=== PATIENT | female | born 1940 | race Caucasian/White ===

== ENCOUNTER 2021-05-11 10:56 | Inpatient (IN) | payer MEDICARE, OTHER ==
[~2021-05-11] VITALS: Ht 167.6 cm; Wt 73.0 kg
[2021-05-11] MEDS ORDERED: NIFEDIPINE ER30 M1 PO (11:31)
[2021-05-11] MEDS ORDERED: LOSARTAN POTAS100 MG PO (11:31)
[2021-05-11] MEDS ORDERED: HYDROCHLOROTHIA25 MG PO (11:31)
[2021-05-11] MEDS ORDERED: TENORMIN25 MG PO (11:31)
[2021-05-11 11:32] LABS: BASOPHILS % 0.3 % (0.0-1.0); EOSINOPHILS # (AUTO) 0.1 (0.0-0.4); EOSINOPHILS % 0.7 % (0.0-6.0); HEMATOCRIT 42.5 % (34.2-44.1); HEMOGLOBIN 13.1 g/dL (12.0-16.0); LYMPHOCYTES # (AUTO) 2.2 (1.0-3.2); LYMPHOCYTES % 21.5 % (18.0-39.1); MEAN CORPUSCULAR HGB CONC 30.8 g/dL (31-35); MEAN CORPUSCULAR VOLUME 87.4 fL (81-99); MONOCYTES % 9.6 % (4.4-11.3); NEUTROPHILS # (AUTO) 6.8 (2.1-6.9); NEUTROPHILS % 67.5 % (38.7-80.0); PLATELET COUNT 446 x10e3/uL (140-360); RED BLOOD COUNT 4.86 x10e6/uL (3.6-5.1); RED CELL DISTRIBUTION WIDTH 15.7 % (11.7-14.4)
[2021-05-11 11:45] LABS: CLARITY,URINE SL CLOUDY (CLEAR); COLOR,URINE YELLOW (YELLOW); LEUKOCYTE ESTERASE ,URINE NEGATIVE (NEGATIVE); NITRITE,URINE NEGATIVE (NEGATIVE); PROTEIN,URINE DIPSTICK NEGATIVE (NEGATIVE)
[2021-05-11 11:46] LABS: KETONES,URINE TRACE (NEGATIVE); URINE UROBILINOGEN 1 mg/dL (0.2 - 1)
[2021-05-11 11:50] LABS: INR 1.05; PARTIAL THROMBOPLASTIN TIME 29.7 seconds (23.8-35.5); PROTHROMBIN TIME 14.5 seconds (11.9-14.5)
[2021-05-11 11:52] LABS: BACTERIA,URINE FEW /HPF; EPITHELIAL CELLS,URINE MANY /LPF; RBC,URINE 0-5 /HPF (0-5); WBC,URINE (MAN) 0-5 /HPF (0-5)
[2021-05-11 11:54] LABS: ALBUMIN 3.6 g/dL (3.5-5.0); ANION GAP 16.7 mmol/L (8-16); CALCIUM 9.3 mg/dL (8.4-10.2); CREATININE, SERUM 1.13 mg/dL (0.57-1.11); MAGNESIUM 1.8 MG/DL (1.3-2.1)
[2021-05-11 11:57] LABS: POTASSIUM 2.7 mmol/L (3.5-5.1)
[2021-05-11 12:00] LABS: CREATINE KINASE MB 0.9 ng/mL (0-5.0)
[2021-05-11] MEDS ORDERED: POTASSIUM CHLORIDE 20 MEQ TAB CR PO STA (12:10)
[2021-05-11 12:32] LABS: ABG HCO3 29 mmol/L (22-26); ABG PCO2 28 mmHg (35-45); ABG PH 7.61 (7.35-7.45); ABG PO2 106 mmHg (80-105); ABG TCO2 30
[2021-05-11] MEDS ORDERED: SODIUM CHLORIDE 0.9% 500ML 500 ML IV ONE (14:00)
[2021-05-11] MEDS ORDERED: ENOXAPARIN SODIUM INJ 100 MG/ML SYR SC ONE (14:00)
[2021-05-11] MEDS ORDERED: ONDANSETRON HCL INJ 2MG/ML 2ML 2 MG/ML VIAL IV PRN (14:30)
[2021-05-11] MEDS ORDERED: SODIUM CHLORIDE 0.9% 50ML 50 ML ONE (14:32)
[2021-05-11] MEDS ORDERED: IOPAMIDOL 370 MG/ML 200 ML INFUS..BTL INJ ONE (14:33)
[2021-05-11] MEDS: FAMOTIDINE 20 MG/2 ML VIAL IV SCH ×2 (16:37→21:00)
[2021-05-11] MEDS ORDERED: POTASSIUM CHLO10 ME1 PO (16:51)
[2021-05-11 16:52] VITALS: BP 160/70
[2021-05-11] MEDS ORDERED: TYLENOL325 MG PO (17:01)
[2021-05-11 17:03] VITALS: BP 160/70
[2021-05-11] MEDS ORDERED: ACETAMINOPHEN 325 MG TAB PO PRN (17:30)
[2021-05-11] MEDS ORDERED: POTASSIUM CHLORIDE 20 MEQ TAB CR PO ONE (18:00)
[2021-05-11 19:51] LABS: CREATINE KINASE MB 1.1 ng/mL (0-5.0)
[2021-05-11 20:16] VITALS: BP 153/82
[2021-05-11 21:20] VITALS: BP 153/82
[2021-05-12] VITALS (11 sets, daily range): BP systolic 117–164; BP diastolic 58–75
[2021-05-12 05:33] LABS: BASOPHILS # (AUTO) 0.1 (0.0-0.1); BASOPHILS % 0.6 % (0.0-1.0); EOSINOPHILS # (AUTO) 0.1 (0.0-0.4); HEMATOCRIT 42.1 % (34.2-44.1); HEMOGLOBIN 13.2 g/dL (12.0-16.0); LYMPHOCYTES # (AUTO) 2.1 (1.0-3.2); LYMPHOCYTES % 24.2 % (18.0-39.1); MEAN CORPUSCULAR HGB CONC 31.4 g/dL (31-35); MEAN CORPUSCULAR VOLUME 86.3 fL (81-99); MONOCYTES # (AUTO) 0.9 (0.2-0.8); MONOCYTES % 10.1 % (4.4-11.3); NEUTROPHILS # (AUTO) 5.5 (2.1-6.9); NEUTROPHILS % 63.5 % (38.7-80.0); PLATELET COUNT 443 x10e3/uL (140-360); RED BLOOD COUNT 4.88 x10e6/uL (3.6-5.1); RED CELL DISTRIBUTION WIDTH 15.6 % (11.7-14.4)
[2021-05-12 06:12] LABS: ALBUMIN 3.4 g/dL (3.5-5.0); ALBUMIN/GLOBULIN RATIO 0.9 (0.8-2.0); ANION GAP 13.4 mmol/L (8-16); CALCIUM 9.4 mg/dL (8.4-10.2); CREATININE, SERUM 0.91 mg/dL (0.57-1.11); POTASSIUM 3.4 mmol/L (3.5-5.1)
[2021-05-12 06:41] LABS: CREATINE KINASE MB 0.8 ng/mL (0-5.0)
[2021-05-12 06:55] LABS: CHOL/HDL RATIO 4.1 (3.0-3.6)
[2021-05-12] MEDS: ASPIRIN 81 MG ENTERIC COATED PO SCH (09:41)
[2021-05-12] MEDS: LOSARTAN POTASSIUM 100 MG TAB PO SCH (09:41)
[2021-05-12] MEDS: FAMOTIDINE 20 MG/2 ML VIAL IV SCH ×2 (09:41→21:00)
[2021-05-12] MEDS: HYDROCHLOROTHIAZIDE 25 MG TAB PO SCH (09:41)
[2021-05-12] MEDS: ATENOLOL 50 MG TAB PO SCH ×2 (09:42→17:51)
[2021-05-12] MEDS: NIFEDIPINE CR 30 MG TAB PO SCH (09:42)
[2021-05-12] MEDS: POTASSIUM CHLORIDE 10MEQ EA PO SCH (09:42)
[2021-05-12] MEDS ORDERED: POTASSIUM CHLORIDE 10MEQ EA PO ONE (10:30)
[2021-05-12] MEDS ORDERED: SODIUM CHLORIDE 0.9% 250ML 0 ML ONE (11:30)
[2021-05-12] MEDS ORDERED: GADOBENATE DIMEGLUMINE 1 ML IV ONE (11:30)
[2021-05-12 13:59] LABS: CREATINE KINASE MB 1.2 ng/mL (0-5.0)
[2021-05-12] MEDS: FUROSEMIDE INJ 10 MG/ML 2 ML VIAL IV SCH (17:50)
[2021-05-13] VITALS (8 sets, daily range): BP systolic 122–168; BP diastolic 66–75
[2021-05-13 05:14] LABS: BASOPHILS # (AUTO) 0.1 (0.0-0.1); BASOPHILS % 0.5 % (0.0-1.0); EOSINOPHILS # (AUTO) 0.1 (0.0-0.4); EOSINOPHILS % 1.4 % (0.0-6.0); HEMATOCRIT 40.1 % (34.2-44.1); HEMOGLOBIN 12.6 g/dL (12.0-16.0); LYMPHOCYTES # (AUTO) 1.9 (1.0-3.2); LYMPHOCYTES % 19.7 % (18.0-39.1); MEAN CORPUSCULAR HEMOGLOBIN 27.2 pg (28-32); MEAN CORPUSCULAR HGB CONC 31.4 g/dL (31-35); MEAN CORPUSCULAR VOLUME 86.4 fL (81-99); MONOCYTES % 10.3 % (4.4-11.3); NEUTROPHILS # (AUTO) 6.5 (2.1-6.9); NEUTROPHILS % 67.7 % (38.7-80.0); PLATELET COUNT 374 x10e3/uL (140-360); RED BLOOD COUNT 4.64 x10e6/uL (3.6-5.1); RED CELL DISTRIBUTION WIDTH 15.5 % (11.7-14.4)
[2021-05-13 05:57] LABS: ANION GAP 12.1 mmol/L (8-16); CALCIUM 9.7 mg/dL (8.4-10.2); CREATININE, SERUM 1.06 mg/dL (0.57-1.11); POTASSIUM 3.1 mmol/L (3.5-5.1)
[2021-05-13] MEDS ORDERED: POTASSIUM CHLORIDE 20MEQ/100ML 100 ML IV ONE (10:00)
[2021-05-13] MEDS ORDERED: POTASSIUM CHLORIDE 10MEQ EA PO ONE (10:00)
[2021-05-13 10:16] LABS: FREE THYROXINE INDEX 2.1239 (1.4-3.8); THYROID STIMULATING HORMONE 1.221 uIU/mL (0.350-4.940)
[2021-05-13] MEDS: FAMOTIDINE 20 MG/2 ML VIAL IV SCH ×2 (10:20→20:49)
[2021-05-13] MEDS: HYDROCHLOROTHIAZIDE 25 MG TAB PO SCH (10:20)
[2021-05-13] MEDS: FUROSEMIDE INJ 10 MG/ML 2 ML VIAL IV SCH ×2 (10:20→16:32)
[2021-05-13] MEDS: ASPIRIN 81 MG ENTERIC COATED PO SCH (10:20)
[2021-05-13] MEDS: POTASSIUM CHLORIDE 10MEQ EA PO SCH (10:20)
[2021-05-13] MEDS: NIFEDIPINE CR 30 MG TAB PO SCH (10:21)
[2021-05-13] MEDS: ATENOLOL 50 MG TAB PO SCH ×2 (10:22→16:32)
[2021-05-13] MEDS ORDERED: SODIUM CHLORIDE 0.9% 500ML 500 ML ONE (10:36)
[2021-05-13] MEDS ORDERED: ONDANSETRON HCL 4 MG ORAL DISINTEGRATING TAB PO PRN (11:15)
[2021-05-13] MEDS: LOSARTAN POTASSIUM 100 MG TAB PO SCH (13:49)
[2021-05-13 15:50] LABS: FREE T4 (FREE THYROXINE) 1.02 ng/dL (0.8-1.8); THYROID STIMULATING HORMONE 1.387 uIU/mL (0.350-4.940)
[2021-05-14 00:45] VITALS: BP 133/67
[2021-05-14 02:53] VITALS: BP 133/67
[2021-05-14 05:23] VITALS: BP 131/59
[2021-05-14 05:26] LABS: BASOPHILS % 0.2 % (0.0-1.0); EOSINOPHILS # (AUTO) 0.1 (0.0-0.4); EOSINOPHILS % 1.4 % (0.0-6.0); HEMATOCRIT 39.3 % (34.2-44.1); HEMOGLOBIN 12.4 g/dL (12.0-16.0); LYMPHOCYTES # (AUTO) 1.6 (1.0-3.2); LYMPHOCYTES % 16.4 % (18.0-39.1); MEAN CORPUSCULAR HEMOGLOBIN 27.1 pg (28-32); MEAN CORPUSCULAR HGB CONC 31.6 g/dL (31-35); MEAN CORPUSCULAR VOLUME 85.8 fL (81-99); MONOCYTES % 10.5 % (4.4-11.3); NEUTROPHILS # (AUTO) 6.9 (2.1-6.9); NEUTROPHILS % 71.1 % (38.7-80.0); PLATELET COUNT 368 x10e3/uL (140-360); RED BLOOD COUNT 4.58 x10e6/uL (3.6-5.1); RED CELL DISTRIBUTION WIDTH 15.5 % (11.7-14.4)
[2021-05-14 05:53] LABS: ANION GAP 14.1 mmol/L (8-16); CALCIUM 9.5 mg/dL (8.4-10.2); CREATININE, SERUM 1.25 mg/dL (0.57-1.11); POTASSIUM 3.1 mmol/L (3.5-5.1)
[2021-05-14 08:00] VITALS: BP 156/69
[2021-05-14] MEDS: HYDROCHLOROTHIAZIDE 25 MG TAB PO SCH (09:38)
[2021-05-14] MEDS: FUROSEMIDE INJ 10 MG/ML 2 ML VIAL IV SCH (09:38)
[2021-05-14] MEDS: LOSARTAN POTASSIUM 100 MG TAB PO SCH (09:38)
[2021-05-14] MEDS: ASPIRIN 81 MG ENTERIC COATED PO SCH (09:38)
[2021-05-14] MEDS: POTASSIUM CHLORIDE 10MEQ EA PO SCH (09:38)
[2021-05-14] MEDS: FAMOTIDINE 20 MG/2 ML VIAL IV SCH (09:38)
[2021-05-14] MEDS: ATENOLOL 50 MG TAB PO SCH (09:39)
[2021-05-14] MEDS: NIFEDIPINE CR 30 MG TAB PO SCH (09:39)
[2021-05-14] MEDS: POTASSIUM CHLORIDE 20 MEQ TAB CR PO SCH ×3 (10:11→14:33)
[2021-05-14] MEDS ORDERED: SODIUM CHLORIDE 0.9% 500ML 500 ML ONE (10:26)
[2021-05-14] MEDS ORDERED: POTASSIUM CHLORIDE 20MEQ/100ML 100 ML IV ONE (10:30)
[2021-05-14 12:00] VITALS: BP 157/69
[2021-05-14] MEDS ORDERED: ATENOLOL 50 MG TAB PO SCH (17:00)
[2021-05-14 18:05] LABS: CALCIUM 9.4 mg/dL (8.4-10.2); CREATININE, SERUM 1.34 mg/dL (0.57-1.11)
[2021-05-14 18:48] VITALS: BP 131/62
== END 2021-05-14 18:49 | disposition home or self-care (01) | DRG 291 ==
LOC: ER 11:01 → ERHOLD 14:36 → MED/SURG3 15:55
DX: I11.0 Hypertensive heart disease with heart failure (principal); I50.33 Acute on chronic diastolic (congestive) heart failure; E87.3 Alkalosis; I45.2 Bifascicular block; E87.6 Hypokalemia; Z20.822 Contact with and (suspected) exposure to COVID-19; I25.10 Atherosclerotic heart disease of native coronary artery without angina pectoris; G89.29 Other chronic pain; R53.1 Weakness; E27.9 Disorder of adrenal gland, unspecified; E04.2 Nontoxic multinodular goiter; R41.82 Altered mental status, unspecified
CPT/HCPCS: 36415; 36600; 70450; 71045; 71260; 74183; 76536; 80048; 80053; 80061; 81001; 82530; 82550; 82553; 82805; 83735; 83880; 84436; 84439; 84443; 84479; 84484; 84585; 85025; 85379; 85610; 85730; 86376; 87040; 87086; 93005; 94799; 96360; 99284; J1650; J1940; J3480; J7040; J7050; Q9967; U0002

== ENCOUNTER 2021-08-30 14:31 | Emergency (ER) | payer MEDICARE, OTHER ==
[~2021-08-30] VITALS: Ht 167.6 cm; Wt 72.6 kg
[~2021-08-30 14:31] MED LIST: HYDROCHLOROTHIA25 MG PO; LOSARTAN POTAS100 MG PO; NIFEDIPINE ER30 M1 PO; POTASSIUM CHLO10 ME1 PO; TENORMIN25 MG PO; TYLENOL325 MG PO
[2021-08-30] MEDS ORDERED: TETANUS/DIPHTHERIA TOX ADULT 0.5 ML SYR IM ONE (15:00)
[2021-08-30] MEDS ORDERED: NEOMYCIN/POLYMYX/BACITR OINT 0.9 GM PKT TOP ONE (17:45)
== END 2021-08-30 17:49 | disposition home or self-care (01) ==
LOC: ER 14:45
DX: S61.411A Laceration without foreign body of right hand, initial encounter (principal); S61.511A Laceration without foreign body of right wrist, initial encounter; W01.0XXA Fall on same level from slipping, tripping and stumbling without subsequent striking against object, initial encounter; Y93.01 Activity, walking, marching and hiking; Y92.480 Sidewalk as the place of occurrence of the external cause; I10 Essential (primary) hypertension
CPT/HCPCS: 70450; 70486; 72125; 90471; 90714; 99283

== ENCOUNTER → 2021-10-08 | Outpatient (CLI) | payer MEDICARE, OTHER | LOC: MRI 09:26 | PROVIDERS: ATTEND Family Medicine | DX: I61.9 Nontraumatic intracerebral hemorrhage, unspecified (principal); I10 Essential (primary) hypertension; M79.89 Other specified soft tissue disorders | CPT/HCPCS: 70551 ==